=== PATIENT | female | born 1955 | race Caucasian/White ===

== ENCOUNTER → 2017-02-18 | Outpatient (CLI) | payer BC ==
[~2017-02-18] MED LIST: ASPI-496 PO; CLIN300C93 PO; DULO60CA7 PO; ESTR1TAB13 PO; LORA2TAB99 PO; MECL25TA4 PO; METH750T87 PO; MORP15TA PO; OXYC10TA32 PO; OXYC1TAB9 PO; PRO AIR HFA INH; PROP20TA PO; RABE20TA5 PO
== END | disposition home or self-care (01) ==
LOC: CFH 09:48
PROVIDERS: ATTEND Surgery
DX: I80.9 Phlebitis and thrombophlebitis of unspecified site (principal); D68.51 Activated protein C resistance

== ENCOUNTER 2017-08-28 08:57 | Emergency (ER) | payer BC ==
[~2017-08-28] VITALS: Ht 162.6 cm; Wt 67.2 kg
[~2017-08-28 08:57] MED LIST changes: +CLIN300C8 PO; -CLIN300C93 PO; -OXYC10TA32 PO; +OXYC10TA47 PO; +RABE20TA18 PO; -RABE20TA5 PO
[2017-08-28] MEDS ORDERED: SODIUM CHLORIDE 0.9% 1,000 ML IV ONE (10:04)
[2017-08-28] MEDS ORDERED: methylPREDNISolone SOD SUCC 125 MG/2 ML ONE (10:11)
[2017-08-28] MEDS: ALBUTEROL/IPRATROPIUM 2.5MG/0.5MG, 3 ML NPPB SCH ×2 (10:24→11:06)
[2017-08-28] MEDS ORDERED: ALBUTEROL/IPRATROPIUM 2.5MG/0.5MG, 3 ML ONE ×2 (10:24)
[2017-08-28] MEDS ORDERED: methylPREDNISolone SOD SUCC 125 MG/2 ML IVP ONE (10:30)
[2017-08-28] MEDS ORDERED: SODIUM CHLORIDE FLUSH 10ML SYR IVF ONE (10:30)
[2017-08-28 11:19] LABS: HEMATOCRIT 43.6 % (34.6-47.8); HEMOGLOBIN 14.8 g/dL (11.7-16.4); WHITE BLOOD COUNT 11.8 x10^3/uL (3.4-10)
[2017-08-28 11:33] LABS: BLOOD UREA NITROGEN 9 mg/dL (7-18)
[2017-08-28 11:38] LABS: IS PT STATUS REG ER OR PRE ER? YES
[2017-08-28] MEDS ORDERED: OMNIPAQUE 350 MG/ML, 100ML BOTTLE ONE (12:57)
[2017-08-28 14:11] VITALS: BP 134/68
== END 2017-08-28 14:13 | disposition home or self-care (01) ==
LOC: ED 10:12
DX: J44.1 Chronic obstructive pulmonary disease with (acute) exacerbation (principal); E05.00 Thyrotoxicosis with diffuse goiter without thyrotoxic crisis or storm
CPT/HCPCS: 36415; 71020; 71275; 80048; 82040; 83605; 83880; 84484; 85025; 85610; 85730; 87040; 93005; 94640; 96361; 96374; 99285; J2930; J7030; Q9967; J7620

== ENCOUNTER 2018-11-18 15:07 | Emergency (ER) | payer BC ==
[~2018-11-18] VITALS: Ht 162.6 cm; Wt 68.4 kg
[~2018-11-18 15:07] MED LIST changes: +OXYC-432 PO; -OXYC1TAB9 PO
[2018-11-18 15:11] VITALS: BP 150/82
--- NOTE | 2018-11-18 17:49 | NUR ---
FROM LOBBY TO ROOM
[2018-11-18] MEDS ORDERED: BACITRACIN ZINC OINT 500U/GM, 0.9 GM ONE (18:10)
[2018-11-18] MEDS ORDERED: DIPH,PERTUSS(ACELL),TET VAC/PF 0.5 ML IM-VACC ONE ×2 (18:19→18:30)
--- NOTE | 2018-11-18 18:49 | NUR ---
Patient/Caregiver given discharge instructions and they have confirmed that they understand the instructions. Patient ambulatory with steady gait.
== END 2018-11-18 18:51 | disposition home or self-care (01) ==
LOC: ED 18:33
DX: S16.1XXA Strain of muscle, fascia and tendon at neck level, initial encounter (principal); S80.811A Abrasion, right lower leg, initial encounter; J44.9 Chronic obstructive pulmonary disease, unspecified; W19.XXXA Unspecified fall, initial encounter; Y93.89 Activity, other specified; Y92.009 Unspecified place in unspecified non-institutional (private) residence as the place of occurrence of the external cause; Y99.8 Other external cause status
CPT/HCPCS: 70450; 72110; 72125; 90471; 90715

== ENCOUNTER 2018-12-08 22:18 | Emergency (ER) | payer BC ==
[~2018-12-08] VITALS: Ht 162.6 cm; Wt 67.7 kg
[2018-12-08 22:24] VITALS: BP 177/84
[2018-12-08] MEDS ORDERED: ALBUTEROL/IPRATROPIUM 2.5MG/0.5MG, 3 ML ONE (23:55)
[2018-12-09] MEDS ORDERED: ALBUTEROL/IPRATROPIUM 2.5MG/0.5MG, 3 ML NPPB ONE
--- NOTE | 2018-12-09 00:30 | NUR ---
DC EDUCATION PROVIDED, PT DEMONSTRATES UNDERSTANDING. PT AMBULATED STEADILY TO DC WITH RN AND SO
== END 2018-12-09 00:39 | disposition home or self-care (01) ==
LOC: ED 22:52
DX: J44.9 Chronic obstructive pulmonary disease, unspecified (principal); F41.1 Generalized anxiety disorder; F17.210 Nicotine dependence, cigarettes, uncomplicated
CPT/HCPCS: 71046; 93005; 94640; 99283; J7620

== ENCOUNTER 2019-05-10 09:23 | Emergency (ER) | payer BC ==
[~2019-05-10] VITALS: Ht 162.6 cm; Wt 65.0 kg
[2019-05-10 09:25] VITALS: BP 113/84
== END 2019-05-10 10:15 | disposition home or self-care (01) ==
LOC: ED 10:00
DX: S90.32XA Contusion of left foot, initial encounter (principal); J44.9 Chronic obstructive pulmonary disease, unspecified; X58.XXXA Exposure to other specified factors, initial encounter; Y93.89 Activity, other specified; Y92.098 Other place in other non-institutional residence as the place of occurrence of the external cause; Y99.8 Other external cause status
CPT/HCPCS: 99283

== ENCOUNTER → 2020-09-05 | Outpatient (CLI) | payer MEDICARE, BC ==
[~2020-09-05] MED LIST changes: -CLIN300C8 PO; +CLIN300C9 PO; +DULO30CA2 PO; +FLUT1DIS IH; +LISI-170 PO; +MECL-101 PO; -MECL25TA4 PO; -OXYC-432 PO; +OXYC15TA3 PO; +OXYC1TAB18 PO
== END | disposition home or self-care (01) ==
LOC: CFH 09:53
PROVIDERS: ATTEND Internal Medicine
DX: J43.2 Centrilobular emphysema (principal); J98.4 Other disorders of lung; R91.8 Other nonspecific abnormal finding of lung field; M51.34 Other intervertebral disc degeneration, thoracic region; M41.84 Other forms of scoliosis, thoracic region; I70.0 Atherosclerosis of aorta; I25.10 Atherosclerotic heart disease of native coronary artery without angina pectoris
CPT/HCPCS: 71250